=== PATIENT | female | born 1935 | race Caucasian/White ===

== ENCOUNTER 2018-08-08 11:25 | Emergency (ER) ==
[2018-08-08 11:41] VITALS: BP 176/85; TEMP 98.9; BMI 23.3
--- NOTE | 2018-08-08 13:36 | CT ---
EXAM: CT chest without contrast HISTORY: Chicken bone in esophagus COMPARISON: None TECHNIQUE: CT chest performed without intravenous contrast. Coronal and sagittal reformatted images obtained. FINDINGS: Please refer to separate report CT neck regarding findings in the lower neck. Heart carmen l in size. Trace pericardial fluid and/or thickening anteriorly. 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 Mild atherosclerosis. Visualized portion of the upper abdomen demons trates no acute abnormality. Sub centimeter hypodensity in the spleen, too small to characterize. N o acute abnormalities bones. Degenerative change in the spine. Central airway patent. No pleural e ffusion or pneumothorax. Mild bibasilar atelectasis. Evaluation for lymphadenopathy limited without contrast. No lymphadenopathy identified. There is marked fluid distension of the esophagus through out the esophagus with the areas of heterogeneous material that may represent ingested food product. One of these regions is seen in the distal esophagus and could represent impacted food bolus. IMPRESSION: 1. Marked fluid distension of the esophagus with areas of heterogeneous material may reflect ingeste d food product. One of these regions seen in the distal esophagus and this could represent impacted f ood bolus causing obstruction. Underlying obstructing lesion or other cause of marked achalaisa not excluded. Gastrointestinal consultation and endoscopy recommended. 2. 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 [place] called to Dr. Connelly 1:25 p.m. 08/08/2018.
--- NOTE | 2018-08-08 13:37 | CT ---
EXAM: CT neck without contrast HISTORY: Chicken bone in esophagus COMPARISON: None TECHNIQUE: CT neck performed without intravenous contrast. Coronal and sagittal reformatted images obtained. FINDINGS: The parotid glands unremarkable. Submandibular glands unremarkable. No lymphadenopathy i dentified in the neck. Thyroid unremarkable. Evaluation of the aerodigestive tract in the neck demo nstrates no exophytic mass lesion or area of focal mass effect, or radiopaque foreign body in the mid tonsils and adenoids not enlarged. Epiglottis the appears normal. Prevertebral soft tissues appear normal. Marked fluid distension of the visualized esophagus that is incompletely imaged. IMPRESSION: 1. Marked fluid distension of the esophagus that is incompletely imaged. Please refer to separate r eport CT chest. 2. No acute abnormality identified in the neck.
--- NOTE | 2018-08-08 15:20 | ED.PDOC ---
General ED Provider: Dr. YOUSUF RAMIREZ Chief Complaint: Non-specific Complaint Stated Complaint: Throat pain , was eating a chicken meat felt it became stuck in her throat. The food sticking issue has been on going for 6 months intermittently but today has difficulty with her oral secretions. There has been no trauma . no air way issues offered . Time Seen by Physician: 11:30 (seen with nurses ) Mode of Arrival: Walk-In Information Source: Patient Exam Limitations: No limitations Primary Care Provider: XENIA PURI Nursing and Triage Documentation Reviewed and Agree: Yes Does patient meet sepsis criteria?: No System Inflammatory Response Syndrome: Not Applicable Sepsis Protocol: For patient's 13 years and over: Temp is 96.8 and below OR 101 and greater Pulse >90 BPM Resp >20/minute Acutely Altered Mental Status Are patient's symptoms suggestive of a new infection, such as: -Pneumonia -Skin, Soft Tissue -Endocarditis -UTI -Bone, Joint Infection -Implantable Device -Acute Abdominal Infection -Wound Infection -Meningitis -Blood Stream Catheter Infection -Unknown EENT Complaint Exam - Throat Complaint/Exam Onset/Duration: 25 hrs Symptoms Are: Still present Timimg: Intermittent Initial Severity: Mild Current Severity: Mild Aggravating: Reports: Eating Alleviating: Reports: None Uvula Midline: Yes Alexandra-tonsillar Fluctuence: No Scarlatinaform Rash Present: No Lesions: Absent: Lip, Gums, Tongue, Buccal Mucosa, Pharynx Stridor Present: No Sinus Tenderness Present: No Tonsillar Hypertrophy Present: No Adenopathy Present: No Splenomegaly Present: No Differential Diagnoses: Other (ESOPHAGEAL RING, WEBS, STRICTURES ) Review of Systems - Review Of Systems Constitutional: Reports: No symptoms Eyes: Reports: No symptoms Ears, Nose, Mouth, Throat: Reports: No symptoms Respiratory: Reports: No symptoms Cardiac: Reports: No symptoms GI: Reports: Other (food sticking) : Reports: No symptoms Musculoskeletal: Reports: No symptoms Skin: Reports: No symptoms Neurological: Reports: No symptoms Endocrine: Reports: No symptoms Hematologic/Lymphatic: Reports: No symptoms All Other Systems: Reviewed and Negative Past Medical History - Past Medical History Previously Healthy: Yes Endocrine: Reports: None Cardiovascular: Reports: None Respiratory: Reports: None Hematological: Reports: None Gastrointestinal: Reports: None Genitourinary: Reports: None Neuro/Psych: Reports: None Musculoskeletal: Reports: None Cancer: Reports: None Last Menstrual Period: menopause - Surgical History General Surgical History: Reports: None - Family History Family History: Reports: None - Social History Smoking Status: Never smoker Hx Substance Use: No Alcohol Screening: Occasionally Physical Exam - Physical Exam Appearance: Well-appearing, No pain distress, Well-nourished Eyes: PABLITO, EOMI, Conjunctiva clear ENT: Ears normal, Nose normal, Oropharynx normal Respiratory: Airway patent, Breath sounds clear, Breath sounds equal, Respirations nonlabored Cardiovascular: RRR, Pulses normal, No rub, No murmur GI/: Soft, Nontender, No masses, Bowel sounds normal, No Organomegaly Musculoskeletal: Normal strength, ROM intact, No edema, No calf tenderness Skin: Warm, Dry, Normal color Neurological: Sensation intact, Motor intact, Reflexes intact, Cranial nerves intact, Alert, Oriented Psychiatric: Affect appropriate, Mood appropriate Interpretation - Radiology Interpretation Radiology Interpretation By: Radiologist Radiology Results: Positive (esophageal distension) Physician Notification - Case Discussed Physician Notified: leslie gilliam Time of Notification: 15:22 (transfer ) Critical Care Note - Critical Care Note Total Time (mins): 0 Course - Course Orders, Labs, Meds: Orders Category Date Time Status CT CHEST W/O CONTRAST Stat RADS 08/08/18 11:[address] SOFT TISSUE NECK W/O CONTR Stat RADS 08/08/18 11:47 Completed Vital Signs: Temp Pulse Resp BP Pulse Ox 08/08/18 11:26 98.9 F 85 20 176/85 H 95 Departure - Departure Time of Disposition: 15:23 Disposition: TSF SHORT-TRM HOSP Discharge Problem: Dysphagia Qualifiers: Dysphagia type: unspecified Qualified Code(s): R13.10 - Dysphagia, unspecified Instructions: Pharyngitis (ED) Condition: Good Pt referred to PMD for follow-up: Yes IPMP verified?: No Allergies/Adverse Reactions: Allergies No Known Allergies Allergy (Unverified 08/08/18 11:34) Home Medications: Ambulatory Orders 1 [No Reported Medications] 08/08/18
== END 2018-08-08 16:01 | disposition short-term general hospital (02) ==
LOC: ED 11:25
DX: R13.10 Dysphagia, unspecified (principal); T18.120A Food in esophagus causing compression of trachea, initial encounter; R07.0 Pain in throat
CPT/HCPCS: 99285

== ENCOUNTER 2018-08-08 15:59 | Outpatient (CLI) ==
[2018-08-08 11:41] VITALS: BMI 23.3
== END 2018-08-08 16:00 | disposition home or self-care (01) ==
LOC: AMBL 15:59
PROVIDERS: ATTEND Family Medicine
DX: R13.10 Dysphagia, unspecified (principal); T18.120A Food in esophagus causing compression of trachea, initial encounter